=== PATIENT | female | born 1990 | race Hispanic/Latino ===

== ENCOUNTER 2020-11-23 13:01 | Emergency (ER) | payer OTHER ==
--- OUTSIDE RECORDS SUMMARY | 2020-11-23 13:04 | XMS REPORT | Continuity of Care Document ---
:1990 Author Organization [facility] t Address [address] [place] [place] [address] Care Team Providers Name Role Phone Pcp, Does Not Have A Primary Care Physician Nurse, Db Urgent Care Attending Clinician Unavailable Unknown Attending Clinician Unavailable Payers Payer Name Policy Type Policy Number Effective Date Expiration Date S ource Problems This patient has no known problems. Allergies, Adverse Reactions, Alerts Allergy Allergy Status Severity Reaction(s) Onset Inactive Treating Comm ents Source Name Type Date Date Clinician No Known DA Active U 2017-03 [facility] No Known DA Active U 2017-03 [facility]ie 0-05 [facility] Social History Social Habit Start Date Stop Date Quantity Comments Source Tobacco use and 2020-11-23 2020-11-23 Never used [facility] exposure 00:00:00 00:00:00 Medical Branch Sex Ass[birth year] At [birth year] [facility] 00:00:00 00:00:00 Medical Branch Smoking Status Start Date Stop Date Source Never smoker [facility] Branch Medications Ordered Filled Start Stop Current Ordering Indication Dosage Frequency Signature Comments Components Source Medication Medication Date Date Medication? Clinician (SIG) Name Name abatacept Yes inject Univer s (ORENCIA 9-08 under the [place]y of [place]) 17:08: skin. [place] 25 [facility] [place] diclofenac Yes 50mg Take 50 mg U nivers 50 mg EC 8-18 by mouth 2 ity o f tablet 00:00: (two) [place] 00 times Medical daily. [place] Vital Signs Vital Name Observation Time Observation Value Comments Source Systolic blood 2020-11-23 17:07:00 137 mm[Hg] Univer sity of pressure [facility] Diastolic blood 2020-11-23 17:07:00 91 mm[Hg] Unive rsity of pressure [facility] Heart rate 2020-11-23 17:07:00 70 /min [facility] Body temperature 2020-11-23 17:07:00 36.61 Sweta [facility] Respiratory rate 2020-11-23 17:07:00 17 /min [facility] Body weight 2020-11-23 17:07:00 106.595 kg [facility] Oxygen saturation in 2020-11-23 17:07:00 99 /min [facility] Arterial blood by [facility] Pulse oximetry Branch Procedures This patient has no known procedures. Plan of Care Planned Activity Planned Date Details Comments Source Encounters Start End Encounter Admission Attending Care Care Encounter Source Date/Time Date/Time Type Type Clinicians Facility Department ID 2020-11-23 2020-11-23 Nurse [facility] [id number] [facility] 12:04:26 12:24:26 Visit Unknown, Attending Health [id number] ity [place] [id number] Alvaro as Jeffrey?Blea [phone] [place] [address] [place] [facility] Results Test Description Test Time Test Comments Results Result Comments Source [facility] 2017-12-30 [facility] 12:20:00 RUN DATE: 12/30/17 [facility] PAGE 1 RUN TIME: 1855 Specimen Inquiry RUN USER: INTERFACE PAT IENT: MYCHAL PÉREZ LOC: KELLY U #: [id number] AGE/SX: / ROOM: [facility] RE12/26/17REG DR: Ferdinand Bassett MD : 88 BED: A DIS: 12/29/17 STATUS: DIS IN TLOC: SPEC #: [id number] RECD: 12/26/17 STATUS: GENEVIEVE FOY #: [id number] DANIEL: 12/26/17- SUBM DR: Ferdinand Bassett MD ENTERED: 12/27/17 SP TYPE: PLACIII OTHR DR: ORDERED: LEVEL V SURGICA/3 CODES: [id number] - FALLOPIAN TUBE [id number] - PLACENTA, NOS PROCEDURES: LEVEL V SURGICA (Incomplete) TISSUES: PLACENTA, NOS - PLACENTA FALLOPIAN TUBE, NOS - BILATERAL FALLOPIAN TUBES CLINICAL HISTORY 27 year old, 37.1 weeks, [id number], repeat , PIH, BTL (wpd) FINAL DIAGNOSIS Fallopian tubes, bilateral segmental resection - no pathologic change Placenta, delivery: - small placenta for stated gestational age - perivillous fibrin deposition, focal Tissue code 1 CPT code(s): 92754 x2, 07272 bgw/wpd 12/30/17 @ 1220 GROSS DESCRIPTION Specimen #1 is received in formalin in a container, labeled with the patient's name and designated "right fallopian tube". The specimen consists of a 0.8 x 0.8 x 0.4 cm segment of fallopian tube, submitted in three pieces in toto in A. Specimen #2 is received in formalin in a container, labeled with the patient's name and designated "left fallopian tube". The specimen consists of a 1.4 x 0.7 x 0.5 cm segment of fallopian tube, submitted in five pieces in toto in B. Specimen #3 was received in a container, labeled with the patient's name, unit number and designated "placenta". The following attributes are observed: Cord insertion: 5 cm from margin Cord length: 18 cm Number of vessels: 3 Cord color: Blue-yost CONTINUED ON NEXT PAGE RUN DATE: 12/30/17 [facility] PAGE 2 RUN TIME: 1855 Specimen Inquiry RUN USER: INTERFACE UBALDO C #: [id number] PATIENT: MYCHAL PÉREZ #[id number] (Continued)-------- -------- GROSS DESCRIPTION (Continued) Other cord findings: None surface findings: Steel blue, wrinkled, glistening Vasculature: Displays unremarkable blood vasculature Membranes rupture site: 0.0 cm to margin Membrane color: Yost Other membrane findings: Slightly thickened and opaque The trimmed placental weight: 367 gm Disk measurement: 17 x 15 x 3.3 cm in greatest dimension Accessory lobes: None Maternal surface: Lobulated, intact and contains yost, firm lesions measuring up to 1.0 cm and involving less than 5% of the total placental tissue Parenchyma: Red, beefy, and spongy Parenchyma lesions: None Cassettes: C through F hz/wpd 12/27/17 @ 1045 MICROSCOPIC DESCRIPTION Full cross-sectional areas of both fallopian tubes are identified. Sections of the placenta show small foci of perivillous fibrin deposition. The placenta is mildly small for stated gestational age at 367 gm, which is less than the 10th percentile expected weight of 391 gm. bgw/wpd 12/30/17 @ 1220 - Signed Ismael Pena 12/30/17 1220 END OF REPORT
--- NOTE | 2020-11-23 14:08 | RAD REPORT ---
EXAM DESCRIPTION: CT - Head Brain Wo Cont - 11/23/2020 1:57 pm CLINICAL HISTORY: DIZZINESS COMPARISON: No comparisons TECHNIQUE: All CT scans are performed using dose optimization technique as appropriate and may inclu de automated exposure control or mA/KV adjustment according to patient size. FINDINGS: No intracranial hemorrhage, hydrocephalus or extra-axial fluid collection.No areas of brai n edema or evidence of midline shift. The paranasal sinuses and mastoids are clear. The calvarium is intact. IMPRESSION: No acute intracranial abnormality.
[2020-11-23] MEDS ORDERED: HYDROCODONE/APAP 7.5/325 MG TAB ONE (15:13)
--- NOTE | 2020-11-23 15:24 | EDPHYS ---
Physician Documentation [facility] Name: Claire Wayne Age: 30 yrs Sex: Female : 1990 Arrival Date: 11/23/2020 Time: 13:06 Bed 9 Private MD: ED Physician Primitivo Yates HPI: 11/23 15:21 This 30 yrs old Female presents to ER via Ambulatory with complaints of Head kb Injury-Adult, Nausea, Headache. 15:21 The patient or guardian reports pain. The complaints affect the left temporal area. kb Context of injury: The problem was sustained at home, resulted from a direct blow, wall. Onset: The symptoms/episode began/occurred yesterday. Associated signs and symptoms: Loss of consciousness: This patient did not experience any loss of consciousness. Severity of symptoms: At their worst the symptoms were moderate, in the emergency department the symptoms are unchanged. The patient has not experienced similar symptoms in the past. The patient has not recently seen a physician. Pt reports she went around a corner in the house, the floor was wet and she slipped. Reports hitting head against the wall when she fell. Denies loc. reports headache that started last night. Headache and lightheadedness today. Historical: - Allergies: 13:25 No Known Allergies; tw2 - Home Meds: 13:25 Orencia 125 mg/mL subcutaneous syrg 1 mL once wkly [Active]; diclofenac sodium 50 mg tw2 oral TbEC 1 tab 4 times per day [Active]; - PMHx: 13:25 Rheumatoid arthritis; tw2 - PSHx: 13:25 section; Appendectomy; tw2 - Immunization history:: Adult Immunizations Client reports receiving the 2nd dose of the Covid vaccine. - Social history:: Smoking status: Patient denies any tobacco usage or history of. ROS: 15:18 Constitutional: Negative for fever, chills, and weight loss. kb 15:18 Neuro: Positive for headache, lightheadedness. 15:18 All other systems are negative. Exam: 15:20 Constitutional: This is a well developed, well nourished patient who is awake, alert, kb and in no acute distress. Head/Face: Normocephalic, atraumatic. Eyes: Pupils equal round and reactive to light, extra-ocular motions intact. Lids and lashes normal. Conjunctiva and sclera are non-icteric and not injected. Cornea within normal limits. Periorbital areas with no swelling, redness, or edema. ENT: Moist Mucous membranes Cardiovascular: Regular rate and rhythm with a normal S1 and S2. No gallops, murmurs, or rubs. No pulse deficits. Respiratory: Respirations even and unlabored. No increased work of breathing, no retractions or nasal flaring. Skin: Warm, dry with normal turgor. Normal color. MS/ Extremity: Pulses equal, no cyanosis. Neurovascular intact. Full, normal range of motion. Neuro: Awake and alert, GCS 15, oriented to person, place, time, and situation. Moves all extremities. Normal gait. Psych: Awake, alert, with orientation to person, place and time. Behavior, mood, and affect are within normal limits. Vital Signs: 13:22 BP 177 / 109; Pulse 74; Resp 18; Temp 98.1(O); Pulse Ox 98% on R/A; Weight 106.59 kg tw2 (R); Height 5 ft. 5 in. (165.10 cm); Pain 10/10; 15:20 BP 125 / 70; Pulse 70; Resp 16; Pulse Ox 100% ; vg1 13:22 Body Mass Index 39.11 (106.59 kg, 165.10 cm) tw2 [place] Coma Score: 13:22 Eye Response: spontaneous(4). Verbal Response: oriented(5). Motor Response: obeys tw2 commands(6). Total: 15. 15:17 Eye Response: spontaneous(4). Verbal Response: oriented(5). Motor Response: obeys kb commands(6). Total: 15. 15:21 Eye Response: spontaneous(4). Verbal Response: oriented(5). Motor Response: obeys kb commands(6). Total: 15. MDM: 14:47 Patient medically screened. kb 15:12 Data reviewed: vital signs, nurses notes. Data interpreted: Pulse oximetry: on room air kb is 98 %. Interpretation: normal. Counseling: I had a detailed discussion with the patient and/or guardian regarding: the historical points, exam findings, and any diagnostic results supporting the discharge/admit diagnosis, radiology results, the need for outpatient follow up, a family practitioner, to return to the emergency department if symptoms worsen or persist or if there are any questions or concerns that arise at home. 11/23 13:44 Order name: CT Head Brain wo Cont; Complete Time: 14:10 iw Administered Medications: 14:57 Drug: [place] (HYDROcodone-acetaminophen) (7.5 mg-325 mg) 1 tabs Route: PO; kg 15:21 Follow up: Response: No adverse reaction; Pain is decreased vg1 Disposition: 11/24 07:03 Co-signature as Attending Physician, Primitivo Yates MD I agree with the assessment and sp3 plan of care. Disposition Summary: 11/23/20 15:24 Discharge Ordered Location: Home kb Condition: Stable kb Diagnosis - Unspecified injury of head, initial encounter kb Followup: kb - With: Emergency Department - When: As needed - Reason: Worsening of condition Followup: kb - With: Private Physician - When: 2 - 3 days - Reason: Recheck today's complaints, Continuance of care, Re-evaluation by your physician Discharge Instructions: - Discharge Summary Sheet kb - Concussion, Adult, Chay-ua-Veld kb - Head Injury, Adult, Ytkd-ey-Eine kb Forms: - Medication Reconciliation Form kb - Thank You Letter kb - Antibiotic Education kb - Prescription Opioid Use kb Signatures: Dispatcher [employer] EDMS Esmer Chapin, YOVANY-C RN SURGICAL-Juliana Stanton RN RN tw2 Rosario Ramírez, RN RN kg Primitivo Yates MD MD sp3 Chica Dixon RN vg1
--- NOTE | 2020-11-23 15:24 | ER ---
Nurse's Notes [facility] Name: Claire Wayne Age: 30 yrs Sex: Female : 1990 Arrival Date: 11/23/2020 Time: 13:06 Bed 9 Private MD: Diagnosis: Unspecified injury of head, initial encounter Presentation: 11/23 13:22 Chief complaint: Patient states: yesterday my mom was mopping and i ran around the tw2 corner and i slipped and my head left side hit right into the corner of the wall. i thought i was going to be fine. i went to work today and was suma foggy brained but my daughter kept me up most of the night. i started getting dizzy and lightheaded. went to urgent care and they said i needed to come here. i waited for my mom to come and give me a ride ER. Coronavirus screen: At this time, the client does not indicate any symptoms associated with coronavirus-19. Ebola Screen: Patient denies travel to an Ebola-affected area in the 21 days before illness onset. Mechanism of Injury: resulted from a fall. Initial Sepsis Screen: Does the patient meet any 2 criteria? No. Patient's initial sepsis screen is negative. Does the patient have a suspected source of infection? No. Patient's initial sepsis screen is negative. Risk Assessment: Do you want to hurt yourself or someone else? Patient reports no desire to harm self or others. Onset of symptoms was November 23, 2020. 13:22 Method Of Arrival: Ambulatory tw2 13:22 Acuity: SHAKIRA 2 tw2 Triage Assessment: 13:27 General: Appears in no apparent distress. obese, Behavior is calm, cooperative, tw2 appropriate for age. Pain: Complains of pain in headache. Neuro: Level of Consciousness is awake, alert, obeys commands, Oriented to person, place, time, situation, Reports headache. Historical: - Allergies: 13:25 No Known Allergies; tw2 - Home Meds: 13:25 Orencia 125 mg/mL subcutaneous syrg 1 mL once wkly [Active]; diclofenac sodium 50 mg tw2 oral TbEC 1 tab 4 times per day [Active]; - PMHx: 13:25 Rheumatoid arthritis; tw2 - PSHx: 13:25 section; Appendectomy; tw2 - Immunization history:: Adult Immunizations Client reports receiving the 2nd dose of the Covid vaccine. - Social history:: Smoking status: Patient denies any tobacco usage or history of. Screenin:36 Abuse screen: Denies threats or abuse. Nutritional screening: No deficits noted. iw Tuberculosis screening: No symptoms or risk factors identified. Fall Risk None identified. Assessment: 15:20 General: Appears in no apparent distress. comfortable, Behavior is calm, cooperative. vg1 Pain: Denies pain. Complains of pain in head Pain currently is 0 out of 10 on a pain scale. at worst was 7 out of 10 on a pain scale. Neuro: Level of Consciousness is awake, alert, obeys commands, Oriented to person, place, time, situation, Reports headache. Cardiovascular: Patient's skin is warm and dry. Respiratory: Airway is patent Respiratory effort is even, unlabored. GI: Reports nausea. : No signs and/or symptoms were reported regarding the genitourinary system. EENT: No signs and/or symptoms were reported regarding the EENT system. Derm: Skin is intact, is healthy with good turgor. Musculoskeletal: Circulation, motion, and sensation intact. Vital Signs: 13:22 BP 177 / 109; Pulse 74; Resp 18; Temp 98.1(O); Pulse Ox 98% on R/A; Weight 106.59 kg tw2 (R); Height 5 ft. 5 in. (165.10 cm); Pain 10/10; 15:20 BP 125 / 70; Pulse 70; Resp 16; Pulse Ox 100% ; vg1 13:22 Body Mass Index 39.11 (106.59 kg, 165.10 cm) tw2 [place] Coma Score: 13:22 Eye Response: spontaneous(4). Verbal Response: oriented(5). Motor Response: obeys tw2 commands(6). Total: 15. 15:17 Eye Response: spontaneous(4). Verbal Response: oriented(5). Motor Response: obeys kb commands(6). Total: 15. 15:21 Eye Response: spontaneous(4). Verbal Response: oriented(5). Motor Response: obeys kb commands(6). Total: 15. ED Course: 13:06 Patient arrived in ED. am2 13:25 Triage completed. tw2 13:27 Arm band placed on. tw2 13:57 CT Head Brain wo Cont In Process Unspecified. EDMS 14:03 Esmer Chapin FNP-C is [facility]. kb 14:03 Primitivo Yates MD is Attending Physician. kb 15:14 Chica Dixon, RN is Primary Nurse. vg1 15:36 Patient has correct armband on for positive identification. iw 15:36 No provider procedures requiring assistance completed. Patient did not have IV access iw during this emergency room visit. Administered Medications: 14:57 Drug: [place] (HYDROcodone-acetaminophen) (7.5 mg-325 mg) 1 tabs Route: PO; kg 15:21 Follow up: Response: No adverse reaction; Pain is decreased vg1 Outcome: 15:24 Discharge ordered by . kb 15:36 Discharged to home ambulatory. iw 15:36 Condition: good 15:36 Discharge instructions given to patient, Instructed on discharge instructions, follow up and referral plans. Demonstrated understanding of instructions, follow-up care. 15:36 Patient left the ED. iw Signatures: Dispatcher [employer] EDMS Esmer Chapin FNP-C FNP-CkChela Kaplan, RN RN iw Juliana Chris RN RN tw2 Sandra Tran am2 Chica Dixon, RN RN vg1 Rosario Ramírez, RN RN kg
[2020-11-23 15:42] VITALS: TEMP 98.1
[2020-11-23 15:43] VITALS: BP 125/70; O2SAT 100
== END 2020-11-23 15:36 | disposition home or self-care (01) ==
LOC: ER 13:01
DX: S09.90XA Unspecified injury of head, initial encounter (principal); W01.198A Fall on same level from slipping, tripping and stumbling with subsequent striking against other object, initial encounter; Y93.89 Activity, other specified; Y92.019 Unspecified place in single-family (private) house as the place of occurrence of the external cause
CPT/HCPCS: 70450; 99283